=== PATIENT | female | born 1975 | race Caucasian/White ===

== ENCOUNTER 2017-02-16 17:24 | Emergency (ER) | payer OTHER | END 2017-02-16 18:44 | disposition left against medical advice (07) | LOC: ER1 17:24 | DX: Z53.21 Procedure and treatment not carried out due to patient leaving prior to being seen by health care provider (principal) ==

== ENCOUNTER → 2017-03-14 | Outpatient (CLI) | payer OTHER | LOC: EMI 10:00 | DX: M54.12 Radiculopathy, cervical region (principal); M50.121 Cervical disc disorder at C4-C5 level with radiculopathy; Z98.1 Arthrodesis status | CPT/HCPCS: 72141 ==

== ENCOUNTER 2021-05-26 14:52 | Emergency (ER) | payer OTHER ==
[2021-05-26] MEDS ORDERED: NAPROSYN500 MG PO (19:40)
[2021-05-26] MEDS ORDERED: CYCLOBENZAPRINE10 MG PO (19:40)
== END 2021-05-26 19:45 | disposition home or self-care (01) ==
LOC: ER1 14:52
DX: S16.1XXA Strain of muscle, fascia and tendon at neck level, initial encounter (principal); S40.021A Contusion of right upper arm, initial encounter; V49.40XA Driver injured in collision with unspecified motor vehicles in traffic accident, initial encounter; Z88.2 Allergy status to sulfonamides; Y92.410 Unspecified street and highway as the place of occurrence of the external cause
CPT/HCPCS: 72125; 73090; 99284

== ENCOUNTER → 2021-06-23 | Outpatient (CLI) | payer OTHER ==
[~2021-06-23] MED LIST: CYCLOBENZAPRINE10 MG PO; NAPROSYN500 MG PO
== END ==
LOC: MRI 13:44
DX: M51.36 Other intervertebral disc degeneration, lumbar region (principal); M50.30 Other cervical disc degeneration, unspecified cervical region; M51.27 Other intervertebral disc displacement, lumbosacral region
CPT/HCPCS: 72156; 72158; A9577

== ENCOUNTER → 2021-11-23 | Outpatient (CLI) | payer OTHER | LOC: KOH-I 09:00 | DX: M25.521 Pain in right elbow (principal); M67.921 Unspecified disorder of synovium and tendon, right upper arm | CPT/HCPCS: 73221 ==